=== PATIENT | male | born 1975 | race Caucasian/White ===

== ENCOUNTER → 2016-11-27 | Outpatient (CLI) | payer OTHER ==
--- NOTE | 2016-11-27 12:35 | MR ---
EXAMINATION TYPE: MR brain and iac wo/w con DATE OF EXAM: 11/27/2016 12:17 PM COMPARISON: MRI brain 05/10/2013 and MRI brain and IAC 12/27/2010 HISTORY: Hearing loss TECHNIQUE: Multiplanar and multispin-echo imaging of the brain was performed both before and after the administr ation of contrast. High-resolution images are obtained of the internal auditory canals performed uti lizing 15 mL intravenous MultiHance contrast. The ventricles, basal cisterns and sulci overlying the cerebral convexities are within normal limits. There is no evidence for midline shift or mass effect. Acute intracranial hemorrhage or extra-axial collection is not evident. A few scattered foci of nonspecific focal increased signal unchanged from prior study. Differential d iagnostic possibilities include demyelination, sequela of prior trauma, vasculitis as well as migrain e headaches and Lyme disease. High-resolution imaging of the internal auditory canals fails demonstrate evidence for an enhancing a coustic schwannoma or cerebellopontine cistern angle mass. Following contrast administration, there is no evidence for pathologic enhancement or enhancing mass. Moderate opacification right maxillary sinus with air-fluid level seen felt to reflect acute sinusiti s. Chronic sinusitis left maxillary sinus as well as ethmoid air cells. The mastoid air cells are well-aerated. IMPRESSION: 1. No evidence of acoustic schwannoma or cerebellopontine angle mass. 2. Nonspecific white matter changes. 3. Sinusitis.
[2016-11-30 04:09] LABS: Lyme Antibodies Total(IgG/IgM) 0.04 (<0.90)
[2016-12-01 14:46] LABS: Mis test requested (Blood) HeatShock Protein 70
[2016-12-08 09:13] LABS: Mis test requested (Blood) Collagen Type II Ab
== END | disposition home or self-care (01) ==
LOC: RADMRIMAIN 12:41
PROVIDERS: ATTEND Otolaryngology
DX: H90.42 Sensorineural hearing loss, unilateral, left ear, with unrestricted hearing on the contralateral side (principal); R90.89 Other abnormal findings on diagnostic imaging of central nervous system; J32.9 Chronic sinusitis, unspecified; H93.19 Tinnitus, unspecified ear
CPT/HCPCS: 86618; 84443; 86038; 83520; 83516; 70553; A9577

== ENCOUNTER → 2018-07-21 | Outpatient (CLI) | payer OTHER ==
--- NOTE | 2018-07-21 08:22 | US ---
EXAMINATION TYPE: US gallbladder DATE OF EXAM: 07/21/2018 COMPARISON: NONE CLINICAL HISTORY: R10.11 RUQ PAIN. NPO. No pain. No surgeries. Patient states feeling a palpable in RUQ abdomen EXAM MEASUREMENTS: Liver Length: 14.5 cm Gallbladder Wall: 0.2 cm CBD: 0.3 cm CHD: 0.4 cm Right Kidney: 9.8 x 4.7 x 4.9 cm Pancreas: wnl Liver: wnl Gallbladder: wnl Evidence for sonographic Lopez's sign: neg CBD: wnl CHD: wnl Right Kidney: wnl RUQ palpable lump scanned. Superficial hyperechoic nonvascular oval lesion seen= 2.4 x 1.9 x 0.5 cm IMPRESSION: 1. Subcutaneous oval iso to slightly hyperechoic area within the palpable region may be a lipoma. 2. Right upper quadrant ultrasound otherwise unremarkable.
== END ==
LOC: RADUSWWP 06:48
PROVIDERS: ATTEND Family Medicine
DX: R93.5 Abnormal findings on diagnostic imaging of other abdominal regions, including retroperitoneum (principal)
CPT/HCPCS: 76705